=== PATIENT | male | born 1990 | race Caucasian/White ===

== ENCOUNTER 2020-08-14 13:00 | Emergency (ER) | payer OTHER, SELFPAY ==
[~2020-08-14] VITALS: Ht 180.3 cm; Wt 90.7 kg
[2020-08-14 13:00] VITALS: BP_SYST 147
== END 2020-08-14 14:00 | disposition home or self-care (01) ==
LOC: SED 13:00
DX: U07.1 COVID-19 (principal)
CPT/HCPCS: 99283; C9803; U0003